=== PATIENT | female | born 1975 | race Caucasian/White ===

== ENCOUNTER 2017-09-15 19:53 | Emergency (ER) | payer MEDICAID ==
[~2017-09-15] VITALS: Ht 157.5 cm; Wt 74.0 kg
[2017-09-16] MEDS ORDERED: ACETAMINOPHEN 325MG TABLET PO ONE (01:15)
[2017-09-16 01:55] VITALS: BP 157/82
== END 2017-09-16 02:05 | disposition home or self-care (01) ==
LOC: ER 19:53
DX: L03.012 Cellulitis of left finger (principal); I10 Essential (primary) hypertension; J45.909 Unspecified asthma, uncomplicated
CPT/HCPCS: 99283

== ENCOUNTER 2019-01-10 21:16 | Emergency (ER) | payer MEDICAID ==
[~2019-01-10] VITALS: Ht 157.5 cm; Wt 76.0 kg
[2019-01-10] MEDS ORDERED: TETRACAINE 0.5% OPHTH DROPS 4ML RIGHTEYE ONE (22:15)
[2019-01-10] MEDS ORDERED: FLUORESCEIN SODIUM 1MG/STRIP RIGHTEYE ONE (22:15)
[2019-01-10 22:45] VITALS: BP 151/70
== END 2019-01-10 22:50 | disposition home or self-care (01) ==
LOC: ER 21:16
DX: H00.013 Hordeolum externum right eye, unspecified eyelid (principal); I10 Essential (primary) hypertension; R73.03 Prediabetes; J45.909 Unspecified asthma, uncomplicated; Z98.890 Other specified postprocedural states
CPT/HCPCS: 99282

== ENCOUNTER 2020-02-22 13:59 | Emergency (ER) | payer MEDICAID ==
[~2020-02-22] VITALS: Ht 160 cm; Wt 64.0 kg
[2020-02-22 16:21] LABS: CLARITY URINE CLEAR (CLEAR); COLOR URINE DARK YELLOW (YELLOW); KETONES URINE NEGATIVE (NEGATIVE); LEUKOCYTE ESTERASE URINE TRACE (NEGATIVE); NITRITE URINE NEGATIVE (NEGATIVE); OCCULT BLOOD URINE NEGATIVE (NEGATIVE); PH URINE 8.5 (4.5-8.0); PROTEIN URINE TRACE (NEGATIVE); SPECIFIC GRAVITY URINE 1.021 (1.005-1.030)
[2020-02-22] MEDS ORDERED: KETOROLAC 30MG/ML VIAL IM ONE (16:30)
[2020-02-22 17:21] VITALS: BP 154/81
== END 2020-02-22 17:21 | disposition home or self-care (01) ==
LOC: ER 13:59
DX: N30.00 Acute cystitis without hematuria (principal)
CPT/HCPCS: 81003; 81025; 96372; 99283; J1885

== ENCOUNTER 2021-11-04 08:53 | Emergency (ER) | payer MEDICAID ==
[~2021-11-04] VITALS: Ht 152.4 cm; Wt 86.0 kg
[2021-11-04] MEDS ORDERED: IBUP-2029 MT (10:38)
[2021-11-04] MEDS ORDERED: CIPHCO RIGHT EAR (10:38)
[2021-11-04] MEDS ORDERED: KETOROLAC 30MG/ML VIAL IM ONE (10:45)
[2021-11-04 11:00] VITALS: BP 156/67
== END 2021-11-04 11:23 | disposition home or self-care (01) ==
LOC: ER 08:53
DX: H60.91 Unspecified otitis externa, right ear (principal); I10 Essential (primary) hypertension; Z90.49 Acquired absence of other specified parts of digestive tract
CPT/HCPCS: 96372; 99283; J1885